=== PATIENT | male | born 1985 | race Caucasian/White ===

== ENCOUNTER 2018-07-02 12:27 | Emergency (ER) | payer BC ==
[2018-07-02] MEDS ORDERED: Acetaminophen/HYDROcodone 325-5 MG Tab PO ONE (12:28)
[2018-07-02] MEDS ORDERED: Lidocaine 1% 20 ML MDV ONE (12:50)
[2018-07-02] MEDS ORDERED: Take Home: Acetaminophen/HYDROcodone 325-5 MG, 2 Tab Pack PO ONE (13:44)
--- NOTE | 2018-07-02 13:49 | EDM.PDOC ---
ED HPI GENERAL MEDICAL PROBLEM - General Chief Complaint: Upper Extremity Injury/Pain Stated Complaint: laceration Time Seen by Provider: 07/02/18 12:55 Source of Information: Reports: Patient History Limitations: Reports: No Limitations - History of Present Illness INITIAL COMMENTS - FREE TEXT/NARRATIVE: Kyle is a 32 year old male who presents to the ED with c/o a crush injury to his left 5th finger. He reports he was moving forks on a fork lift when one slipped and landed on his left 5th finger. He reports his nail is loose. Reports initially he had some numbness/tingling, but now has pain to the tip of his finger. ROM intact. Reports it is throbbing. Has not taken anything for the pain. Denies any other complaints. 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 Left Hand Pain Score (Numeric/FACES): 5 - Related Data Allergies Allergy/AdvReac Type Severity Reaction Status Date / Time cefaclor [From Ceclor] Allergy Rash Verified 07/02/18 12:32 Home Meds: Home Meds Albuterol [Ventolin HFA] 8 gm IH ASDIRECTED PRN 07/02/18 [History] Amoxicillin/Potassium Clav [Augmentin 875-125 Tablet] 1 each PO BID 5 Days #10 tablet 07/02/18 [Rx] Past Medical History HEENT History: Reports: Allergic Rhinitis - Past Surgical History Musculoskeletal Surgical History: Reports: Arthroscopic Procedure, Shoulder Surgery Social & Family History - Tobacco Use Smoking Status *Q: Never Smoker Review of Systems - Review of Systems Review Of Systems: ROS reveals no pertinent complaints other than HPI. ED EXAM, GENERAL - Physical Exam Exam: See Below Exam Limited By: No Limitations General Appearance: Alert, WD/WN, No Apparent Distress Peripheral Pulses: 2+: Radial (L) Extremities: Normal Range of Motion, Normal Capillary Refill, Other (crush injury noted to left 5th finger, nail loose, connected via medal aspect of nail bed only, small amount of bleeding, 2 cm laceration down middle of L) 5th dital phalynx, mangled edges) Neurological: Alert, Oriented, CN II-XII Intact, Normal Cognition, Normal Gait, No Motor/Sensory Deficits Psychiatric: Normal Affect, Normal Mood Skin Exam: Wound/Incision (left 5th distal phalynx) ED TRAUMA EXTREMITY PROCEDURES - Laceration/Wound Repair Left Distal Digit - 5th (Baby) Lac/Wound Length In cm: 2 Appearance: Subcutaneous Distal NVT: Neuro & Vascular Intact Anesthetic Type: Digital Local Anesthesia - Lidocaine (Xylocaine): 1% Plain Local Anesthetic Volume: 4cc Skin Prep: Providone-Iodine (Betadine), Other (Wound cleanser) Exploration/Debridement/Repair: Minimal Debridement, No Foreign Material Found, Wound Margins Revised Closed With: Sutures Suture Size: 4-0 # of Sutures: 7 Suture Type: Nylon Sterile Dressing Applied: Nurse Tetanus Status Addressed: Yes Complications: No Progress/Comments: Fingernail attached via medial side of nailbed, otherwise moveable. Nail removed without difficulty. 7 sutures placed without complication. Patient tolerated well. Course - Vital Signs Last Recorded V/S: Last Vital Signs Temp 97.4 F 07/02/18 12:28 Pulse 73 07/02/18 12:28 Resp 16 07/02/18 12:28 BP 152/83 H 07/02/18 12:28 Pulse Ox 99 07/02/18 12:28 - Orders/Labs/Meds Orders: Active Orders 24 hr Category Date Time Status Fingers Fifth Digit Lt F4 [CR] Stat Exams 07/02/18 12:46 Taken Acetaminophen/HYDROcodone [Take Home: Acetaminophen/ Med 07/02/18 13:44 Once HYDROcod, 2 Tab Pack] 2 packet PO ONETIME ONE Meds: Medications Discontinued Medications Generic Name Dose Route Start Last Admin Trade Name Jacobo PRN Reason Stop Dose Admin Lidocaine HCl Confirm 07/02/18 12:50 07/02/18 13:06 Xylocaine 1% Administered 07/02/18 12:51 20 ml Dose Administration 20 ml .ROUTE .STK-MED ONE - Re-Assessments/Exams Free Text/Narrative Re-Assessment/Exam: Xray findings discussed with patient. Appears to have left 5th distal phalynx fracture. Site cleansed with betadine. Area numbed locally with 1% lidocaine. Loose fingernail to left 5th distal phalynx removed without difficulty. Severe damage to nail bed. Seven 4-0 nylon sutures placed without complication under sterile technique. Patient tolerated well. Area dressed with dressing and splint applied. Departure - Departure Time of Disposition: 13:48 Disposition: Home, Self-Care 01 Condition: Good Clinical Impression: Fracture of distal phalanx of left little finger Qualifiers: Encounter type: initial encounter Fracture type: open Fracture alignment: displaced Qualified Code(s): S62.637B - Displaced fracture of distal phalanx of left little finger, initial encounter for open fracture Crush injury to finger Qualifiers: Encounter type: initial encounter Qualified Code(s): S67.10XA - Crushing injury of unspecified finger(s), initial encounter - Discharge Information *PRESCRIPTION DRUG MONITORING PROGRAM REVIEWED*: Not Applicable *COPY OF PRESCRIPTION DRUG MONITORING REPORT IN PATIENT ARIEL: Not Applicable Instructions: Finger Fracture, [id number], Sutured Wound Care Referrals: Bunny Hein MD [Primary Care Provider] - Additional Instructions: TDap up to date Will treat with Augmentin BID x 5 days prophylactically given open fracture Elevate extremity as much as possible the next few days [place] 1 tab every 6 hours as needed for severe pain Tylenol or ibuprofen as needed for less severe pain Follow up Tuesday for wound check/suture removal - My Orders Last 24 Hours: My Active Orders 07/02/18 12:46 Fingers Fifth Digit Lt F4 [CR] Stat 07/02/18 13:44 Acetaminophen/HYDROcodone [Take Home: Acetaminophen/HYDROcod, 2 Tab Pack] 2 packet PO ONETIME ONE - Assessment/Plan Last 24 Hours: My Active Orders 07/02/18 12:46 Fingers Fifth Digit Lt F4 [CR] Stat 07/02/18 13:44 Acetaminophen/HYDROcodone [Take Home: Acetaminophen/HYDROcod, 2 Tab Pack] 2 packet PO ONETIME ONE
[2018-07-02] MEDS ORDERED: Amoxicillin/Clavulanate K 875-125 MG Tab PO SCH (14:00)
== END 2018-07-02 14:00 | disposition home or self-care (01) ==
LOC: CC.ED 12:27
DX: S67.197A Crushing injury of left little finger, initial encounter (principal); W23.0XXA Caught, crushed, jammed, or pinched between moving objects, initial encounter
CPT/HCPCS: 11760; 12001; 73140-F4; 99283; A9270-GY

== ENCOUNTER 2023-08-06 16:25 | Emergency (ER) | payer BC ==
[2023-08-06] MEDS ORDERED: Lidocaine 1% with EPINEPHrine 1:100,000 10 ML MDV INJECT ONE (16:42)
[2023-08-06] MEDS ORDERED: Bacitracin/Neomycin/Polymyxin B Oint 0.9 GM U/D Packet TOP ONE (16:42)
== END 2023-08-06 17:35 | disposition home or self-care (01) ==
LOC: CC.ED 16:25
DX: S61.411A Laceration without foreign body of right hand, initial encounter (principal); Z88.1 Allergy status to other antibiotic agents; W23.1XXA Caught, crushed, jammed, or pinched between stationary objects, initial encounter
CPT/HCPCS: 12001; 99283; A9270; J3490